=== PATIENT | female | born 1975 | race Caucasian/White ===

== ENCOUNTER 2019-03-25 11:16 | Day surgery (SDC) | payer OTHER, SELFPAY ==
--- NOTE | 2019-03-19 09:45 | PCM.HP.BLA ---
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 Pt ultimately would like to conceive. Patient does have history of a likely bicornuate uterus. Patient would like to proceed with a hysteroscopy D&C polypectomy using symphion. Patient denies any concerns today. ? PAST MEDICAL HISTORY PAST MEDICAL HISTORY Diagnosis Date ? Abnormal glandular Papanicolaou smear of cervix ? ? Abn. Pap smear (cervix) ? Bicornuate uterus ? ? see 2009 ultrasound ? Herpes simplex virus (HSV) infection ? ? Infertility, female ? ? Other and unspecified ovarian cyst age 18 ? Ovarian cyst ? PAST SURGICAL HISTORY PAST SURGICAL HISTORY Procedure Laterality Date ? DELIVERY ONLY ? 05/16/2016 ? FAMILY HISTORY FAMILY HISTORY Problem Relation Age of Onset ? Stroke Paternal Grandmother ? ? Diabetes Brother ? ? SOCIAL HISTORY Social History ? Tobacco Use ? Smoking status: Never Smoker ? Smokeless tobacco: Never Used Substance Use Topics ? Alcohol use: Yes ? ? Comment: occassionally, not while ? Drug use: No ? CURRENT MEDICATIONS Current Outpatient Medications Medication Sig ? Multivitamin capsule Take 1 capsule by mouth once daily. ? ibuprofen (MOTRIN) 600 mg tablet Take 1 tablet by mouth every 6 hours as needed. FOR PAIN. ? miSOPROStol (CYTOTEC) 200 mcg tablet Take two tablets PO night before procedure and two tablets morning of procedure ? PNV95/FERROUS FUMARATE/FA ( ORAL) Take by mouth. ? No current facility-administered medications for this visit. ? Allergies As of Date: 03/17/2019 Allergen Noted Reaction CORN 04/17/2016 Hives TYLENOL [ACETAMINOPHEN] 10/05/2015 Other: See Comments ? Fully Assessed 03/17/2019 ? ? REVIEW OF SYSTEMS Abdomen: No abdominal pain, nausea, vomiting, diarrhea, or constipation. Bladder: no dysuria .. Expanded ROS: GENERAL: Negative for fever Allergies and current medication updated:Yes ? EXAM: BP 102/70 Ht 5' 5 (1.65m) Wt 176 lb (79.8kg) LMP 12/25/2018 BMI 29.29 kg/(m^2). ? GENERAL: pleasant, female in no apparent distress HEENT: Normocephalic and atraumatic NECK: full range of motion DERMATOLOGY: Normal, without lesions and non-icteric BREAST: deferred NEURO: alert and oriented x3,exam grossly non-focal ? ASSESSMENT AND PLAN: Encounter Diagnosis ? ? ICD-10-CM ? 1. Abnormal uterine bleeding (AUB) N93.9 ? 2. Endometrial polyp N84.0 ? ? 3. Pt has been counseled on risks/benefits and alternatives of surgery including but not limited to anesthesia, bleeding, infection, uterine perforation with subsequent injury to pelvic structures including bowel, bladder, and vessels. Pt wishes to proceed with surgery at this time. ? 4. Post op motrin ordered 5. Consider femara at post op exam - declines CAROL ? ? Erica Morfin MD ?
--- NOTE | 2019-03-25 | EMB_PTH ---
PATIENT: FERNANDA AGUIRRE [place] [facility] [id number] AGE/SX: 44/F ROOM: RE03/25/[address]: Dr. Erica Morfin, MDDOB: 1975 BED: DIS: 03/25/2019 SPEC #: [id number] RECD: 03/25/19 15:33 STATUS: YOBANY ARABELLA #: [id number] LORY: 03/25/19 00:[address]: Erica Morfin DEPT: SURGICAL PATHOLOGY RECD BY: Sergei Kendrick ENTERED: 03/26/19 07:49 SP TYPE: ENDOM BX/C DAREN DR: No Primary Care Phys Tissues: Endometrium, NOS Procedures: Surgery Specimen Level IV HEADER OPERATION: Hysteroscopy, D & C Symphion, polypectomy PRE-OP DIAGNOSIS: Abnormal uterine bleeding; endometrial polyp TISSUE SUBMITTED: Endometrial curettings MICROSCOPIC DIAGNOSIS Endometrium, curettings: Transition endometrium with mild disorder. AM:demi 03/29/19 MICROSCOPIC DESCRIPTION Slides are reviewed. GROSS DESCRIPTION Received in fixative is one container labeled with the patient's name and designated endometrial curettings. The specimen consists of multiple irregular fragments of lyn soft tissue mixed with hemorrhagic tissue that in aggregate measure 2.5 x 2 x 0.2 cm. The specimen is totally submitted in one cassette. / SJ:demi 03/26/19 TC:5 CPT: 71139
[2019-03-25 11:49] VITALS: BP 105/70; PULSE 67; RESP 15; TEMP 36.8; O2SAT 100; BMI 29.3
[2019-03-25 11:54] LABS: Internal QC Validated? YES +Cl - CLEAR BKGD; Pregnancy, Urine Negative Negative
[2019-03-25] MEDS: Lactated Ringers 1,000 ML 100 ML IV (11:59)
--- NOTE | 2019-03-25 13:09 | PCM.OPRPT ---
Report of Operation Date of Procedure: 03/25/19 Pre-Operative Diagnosis: AUB, endometrial polyp Post-Operative Diagnosis: AUB Surgery/Procedure Performed:: Hysteroscopy, D&C Description of Surgical Findings:: Endometrium with cystic appearing structure at fundal aspect. no polyps noted. Both tubal ostia visualized. 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 Anesthesia was given. patient was placed in yellow fin stirrups and prepped and draped in normal sterile fashion. bladder was drained with straight catheter with [id number] of clear yellow urine expelled. Weighted speculum placed in posterior fornix of vaginal, single tooth tenaculum was used to gently grasped anterior lip of cervix. Uterus was sounded to 8cc. Cervix was then gently dilated in an incremental fashion. Was adequate dilation was achieved the hysteroscope was inserted using Normal saline as the distention medium. Upon hysteroscopy there was endometrial cyst noted at fundal aspect. No polyps noted. Both tubal ostia visualized. The symphion resecting device was used to remove tissue/cystic structure. The tissue was then sent to pathology for examination. Uterine cavity intact, no complications. At this time procedure was deemed complete and successful. Tenaculum removed, speculum removed. Good hemostasis appreciated. Vaginal sweep was negative. Instrument and lap count correct x 2. I anticipate normal postoperative course. Grafts/Implants Used: none - Complications none - Admit VTE Documentation VTE Present on Admission: Yes VTE Mechan Device Prophylaxis: SCD's VTE Pharm Prophylaxis ordered?: No
--- NOTE | 2019-03-25 13:14 | DCINST_ITS ---
Discharge Diet: No Restrictions Discharge Activity: Return to Normal Activity, May Shower, May Take a Tub Bath - in 2 weeks. Allergies/Adverse Reactions: Allergies acetaminophen [From Tylenol] Adverse Reaction (Verified 03/25/19 11:48) Other Medications to take at Discharge Multivitamin with Minerals [Multiple Vitamin] 1 ea PO DAILY 03/18/19 Primary Care Physician: Care Physician,No Primary [Primary Care Provider] - Test Results: Test results from this visit will be discussed in further detail at your follow- up appointment, if applicable.
[2019-03-25 13:18] VITALS: BP 105/70; BP 108/69; PULSE 76; RESP 16; TEMP 36.7; O2SAT 98
[2019-03-25 13:25] VITALS: BP 105/70; BP 106/64; PULSE 63; RESP 16; O2SAT 97
[2019-03-25 13:30] VITALS: BP 105/70; BP 111/64; PULSE 72; RESP 16; O2SAT 98
[2019-03-25 13:35] VITALS: BP 105/66; BP 105/70; PULSE 60; RESP 16; TEMP 36.7; O2SAT 97
[2019-03-25 14:05] VITALS: BP 105/70
== END 2019-03-25 14:19 | disposition home or self-care (01) ==
LOC: SDC 11:18 → AC 11:23
PROVIDERS: Referring Provider Obstetrics & Gynecology; Visit Provider Obstetrics & Gynecology
PROC: 0UB98ZZ Excision of Uterus, Via Natural or Artificial Opening Endoscopic (ICD-10-PCS; CPT 58558; principal; 2019-03-25 12:35)
DX: N84.1 Polyp of cervix uteri (principal); N93.9 Abnormal uterine and vaginal bleeding, unspecified; N97.9 Female infertility, unspecified
CPT/HCPCS: 58558; 81025; 88305; J7120; J2405